=== PATIENT | female | born 2000 | race Caucasian/White ===

== ENCOUNTER 2022-08-24 21:55 | Inpatient (IN) ==
[2022-08-24 22:55] LABS: Pregnancy Test, Urine Negative (Negative)
[2022-08-24 22:55] LABS: Basophils # (auto) 0.04 K/uL (0-0.2); Basophils % (auto) 0.4 %; Eosinophils # (auto) 0.09 K/uL (0-0.50); Eosinophils % (auto) 0.9 %; Hematocrit (blood only) 43.2 % (37.0-47.0); Hemoglobin 14.7 g/dl (12.0-16.0); Immature Granulocytes # (auto) 0.03 K/uL (0.01-0.20); Immature Granulocytes % (auto) 0.3 %; Lymphocytes # (auto) 3.45 K/uL (1.2-3.4); Lymphocytes % (auto) 33.1 %; Mean Corpuscular Hemoglobin 30.5 pg (25.0-34.0); Mean Corpuscular Volume 89.6 fL (80.0-100.0); Mean Platelet Volume 11.5 fL (9.4-12.4); Monocytes # (auto) 0.66 K/uL (0.11-0.59); Monocytes % (auto) 6.3 %; Neutrophils # (auto) 6.14 K/uL (1.40-6.50); Platelet Count 295 K/uL (130-400); RDW Coefficient of Variation 12.6 % (11.5-14.5); RDW Standard Deviation 41.3 fL (36.4-46.3); Red Blood Count 4.82 M/uL (4.20-5.40); White Blood Count 10.41 K/ul (4.8-10.8)
[2022-08-24 22:58] LABS: Appearance Urine Clear (Clear); Bilirubin Urine Negative (Negative); Blood Urine Negative (Negative); Color Urine Yellow; Glucose Urine UA Negative (Negative); Ketones Urine Negative (Negative); Leukocyte Esterase Urine Negative (Negative); Nitrite Urine Negative (Negative); Protein Urine Negative (Negative); Specific Gravity Urine 1.021 (1.000-1.030); Urobilinogen Urine Negative (Negative)
--- NOTE | 2022-08-24 23:04 | Emergency Department Note ---
History of Present Illness General Chief complaint: Overdose (Intentional) Stated complaint: OVERDOSE Time Seen by Provider: 08/24/22 22:48 History of Present Illness 22-year-old female presents emergency department states that she had an argument with her roommate and took 20 25 mg Vistaril at 9:10 PM. Patient states that she has had a prior psychiatric admission 2 years ago but had no suicidal ideation at that time. Patient states that this was to cause self-harm. Patient states that she currently is depressed. Patient denies any other current symptoms such as chest pain shortness of breath abdominal pain nausea vomiting diarrhea. Patient denies any drug use denies aspirin or Tylenol ingestion. Denies alcohol use. There are no other mitigating or alleviating factors Home Medications Medication Instructions Recorded Confirmed Type levonorgestrel 21 mcg/24 hours (8 intrauterine 08/03/20 04/26/22 History yrs) 52 mg intrauterine device (Mirena) lurasidone 20 mg tablet (Latuda) 60 mg PO DAILY 09/27/21 08/25/22 History syringe with needle, safety 3 mL #4 ea 04/24/22 04/26/22 Rx 25 gauge x 1" (BD Integra Syringe) topiramate 50 mg tablet (Topamax) 100 mg PO BID 04/24/22 08/25/22 History buspirone 10 mg tablet mg 08/25/22 History fluoxetine 20 mg tablet mg 08/25/22 History Allergies Allergy/AdvReac Type Severity Reaction Status Date / Time amoxicillin Allergy Unknown Rash Verified 04/26/22 10:00 Past Med/Surg History Medical History Abdominal cramping, bilateral lower quadrant Acute diarrhea Bipolar 2 disorder BRCA gene mutation negative for 1 and 2. plan to start mammo at 29 Influenza A Migraine without aura Surgical History H/O wisdom tooth extraction Family History Mother Breast cancer, Onset Age: 40 BRCA neg Depression Hypertension Seizure Grandmother (Paternal) Ovarian cancer Father Squamous cell carcinoma Alcohol abuse Sister Depression Denies family history of Prostate cancer Myocardial infarction Colorectal cancer Uterine cancer Social History Smoking Status: Unknown if ever smoked Second Hand Exposure: Yes; Do You Dip or Chew Tobacco: No; Hx Alcohol Use: Yes Alcohol type: hard liquor and other Alcohol Intake Frequency: 2-3 x/Week Hx Substance Use: No Preferred Language: Setswana Communication Ability: Effective Communication Ability Comment: Single. [employer] student. Visual Impairment: No Limitations Hearing Ability: Normal Air Quality Chemist Required: No marital status: Single Current Living Situation: Other Current Living Situation Comment: W/[employer]MAT[employer] current occupational status: employed current occupation: ASSIST. [employer] Feels Safe at Home: No Childhood Exposure to Second-Hand Smoke: Yes Diet: regular caffeine: No during the past year weight has: increased > 10 lbs Dental Care, Regularly: Yes Physical Activity Frequency: Does not Exercise Seatbelt Use: always Sunscreen Use: Yes Gender Identity: Female Assistive Devices: Contacts Review of Systems A total of 10 systems reviewed and were otherwise negative Respiratory: no cough Cardiovascular: no chest pain Gastrointestinal: no abdominal pain Physical Exam Vital Signs Vital Signs - 24 hr 08/24/22 22:07 08/24/22 22:31 08/25/22 02:37 Temperature 37.1 C Temperature Source Oral Pulse Rate 81 71 Pulse Rate [Apical] 76 Respiratory Rate 16 16 Respiratory Effort / Characteristics Non-Labored Spontaneous Non-Labored Spontaneous Respiratory Depth Normal Normal Respiratory Pattern Regular Regular Blood Pressure 146/89 H Blood Pressure [Right Arm] 112/77 Blood Pressure Mean 108 Blood Pressure Mean [Right Arm] 88 Pulse Oximetry 100 99 Oxygen Delivery Method Room Air Room Air Sepsis Recent Fever Within 48 Hours No Sepsis New/Unexplained Change in Mental Status No Sepsis Action Taken by Nursing No Action Required 08/25/22 02:48 Temperature Temperature Source Pulse Rate 72 Pulse Rate [Apical] Respiratory Rate Respiratory Effort / Characteristics Respiratory Depth Respiratory Pattern Blood Pressure Blood Pressure [Right Arm] Blood Pressure Mean Blood Pressure Mean [Right Arm] Pulse Oximetry Oxygen Delivery Method Sepsis Recent Fever Within 48 Hours Sepsis New/Unexplained Change in Mental Status Sepsis Action Taken by Nursing GENERAL: Patient is awake alert in no acute distress patient is resting comfortably and showing no signs of anxiety EYES: The conjunctivae are clear. The pupils are round and reactive. EARS, NOSE, MOUTH AND THROAT: The nose is without any evidence of any deformity. Mucous membranes are moist. Tongue is midline. NECK: The neck is nontender and supple. RESPIRATORY: Normal respiratory effort is noted there is no evidence of wheezing rhonchi or rales CARDIOVASCULAR: Regular rate and rhythm noted there no murmurs rubs or gallops normal S1 normal S2. GASTROINTESTINAL: The abdomen is soft. Abdomen is nontender. BACK: No midline tenderness or or step-off noted range of motion in flexion extension as well as rotation no signs of muscle spasm noted MUSCULOSKELETAL/EXTREMITIES: There is no evidence of gross deformity full range of motion is noted in the hips and shoulders. SKIN: There is no obvious evidence of any rash. There are no petechiae, pallor or cyanosis noted. NEUROLOGIC: Patient is awake alert and oriented x3 strength is symmetric Psych; depressed affect Course Reevaluation(s) Reevaluation #1: Repeat examination patient restingin no distress, there is no alteration mental status, the patient not tachycardic not hypertensive there is no obvious anticholinergic toxidrome. Patient is now medically cleared for psychiatric evaluation at 2:05 AM Time: 02:03 Reevaluation #2: Patient was resting in no distress was evaluated by the 3 S. psychiatric team and has been accepted for admission at 3:40 AM Time: 03:40 Medical Decision Making Medical Records Attestation: I reviewed the patient's medical records. Home Medications Current Medication List: was personally reviewed by me Laboratory Data Attestation: I reviewed the patient's lab results. 08/24/22 22:02 08/24/22 22:02 Lab Results 08/24/22 08/24/22 08/24/22 Range/Units 22:02 22:02 22:02 WBC 10.41 (4.8-10.8) K/ul RBC 4.82 (4.20-5.40) M/uL Hgb 14.7 (12.0-16.0) g/dl Hct 43.2 (37.0-47.0) % MCV 89.6 (80.0-100.0) fL MCH 30.5 (25.0-34.0) pg MCHC 34.0 (32.0-36.0) g/dL RDW Std Deviation 41.3 (36.4-46.3) fL RDW Coeff of Enrique 12.6 (11.5-14.5) % Plt Count 295 (130-400) K/uL MPV 11.5 (9.4-12.4) fL Immature Gran % (Auto) 0.3 % Neut % (Auto) 59.0 % Lymph % (Auto) 33.1 % [place] % (Auto) 6.3 % Eos % (Auto) 0.9 % Baso % (Auto) 0.4 % Neut # (Auto) 6.14 (1.40-6.50) K/uL Lymph # (Auto) 3.45 H (1.2-3.4) K/uL [place] # (Auto) 0.66 H (0.11-0.59) K/uL Eos # (Auto) 0.09 (0-0.50) K/uL Baso # (Auto) 0.04 (0-0.2) K/uL Immature Gran # (Auto) 0.03 (0.01-0.20) K/uL Sodium 139 (136-145) mmol/L Potassium 3.4 L (3.5-5.1) mmol/L Chloride 106 (98-107) mmol/L Carbon Dioxide 26 (21-32) mmol/L Anion Gap 7 (3-11) BUN 14 (6-23) mg/dl Creatinine 0.93 (0.6-1.2) mg/dl Est Cr Clr Drug Dosing 105.9 ml/min Est GFR ( Amer) 100.4 ml/min Est GFR (Non-Af Amer) 86.6 ml/min BUN/Creatinine Ratio 15.1 (10-20) Glucose 99 (70-99(Fasting)) mg/dl Calcium 9.1 (8.6-10.3) mg/dl Total Bilirubin 0.2 (0.2-1.0) mg/dl AST 17 (13-39) U/L ALT 10 (7-52) U/L Alkaline Phosphatase 101 (34-104) U/L Total Protein 7.6 (6.0-8.3) gm/dl Albumin 4.3 (3.4-5.0) gm/dl Globulin 3.3 (2.5-4.0) gm/dl Albumin/Globulin Ratio 1.3 (0.9-2) TSH 2.328 (0.300-4.500) uIu/ml Urine Color Urine Appearance (Clear) Urine pH (4.5-7.5) Ur Specific [place] (1.000-1.030) Urine Protein (Negative) Urine Glucose (UA) (Negative) Urine Ketones (Negative) Urine Blood (Negative) Urine Nitrite (Negative) Urine Bilirubin (Negative) Urine Urobilinogen (Negative) Ur Leukocyte Esterase (Negative) Urine Test (Negative) Salicylates (3.0-30) mg/dl Urine Opiates Screen (Neg) Ur Methadone, Qual (Neg) Acetaminophen (10-30) ug/ml Urine Barbiturates (Neg) Ur Phencyclidine (PCP) (Neg) U Amphetamin/Meth Scrn (Neg) MDMA (Ecstasy) Screen (Neg) U Benzodiazepines Scrn (Neg) Ur Cocaine Metabolite (Neg) U Marijuana (THC) Screen (Neg) Ethyl Alcohol mg/dL (<10.0) mg/dl SARS-CoV-2, RNA, NAAT (NEGATIVE) 08/24/22 08/24/22 08/24/22 Range/Units 22:02 22:42 22:42 WBC (4.8-10.8) K/ul RBC (4.20-5.40) M/uL Hgb (12.0-16.0) g/dl Hct (37.0-47.0) % MCV (80.0-100.0) fL MCH (25.0-34.0) pg MCHC (32.0-36.0) g/dL RDW Std Deviation (36.4-46.3) fL RDW Coeff of Enrique (11.5-14.5) % Plt Count (130-400) K/uL MPV (9.4-12.4) fL Immature Gran % (Auto) % Neut % (Auto) % Lymph % (Auto) % [place] % (Auto) % Eos % (Auto) % Baso % (Auto) % Neut # (Auto) (1.40-6.50) K/uL Lymph # (Auto) (1.2-3.4) K/uL [place] # (Auto) (0.11-0.59) K/uL Eos # (Auto) (0-0.50) K/uL Baso # (Auto) (0-0.2) K/uL Immature Gran # (Auto) (0.01-0.20) K/uL Sodium (136-145) mmol/L Potassium (3.5-5.1) mmol/L Chloride (98-107) mmol/L Carbon Dioxide (21-32) mmol/L Anion Gap (3-11) BUN (6-23) mg/dl Creatinine (0.6-1.2) mg/dl Est Cr Clr Drug Dosing ml/min Est GFR ( Amer) ml/min Est GFR (Non-Af Amer) ml/min BUN/Creatinine Ratio (10-20) Glucose (70-99(Fasting)) mg/dl Calcium (8.6-10.3) mg/dl Total Bilirubin (0.2-1.0) mg/dl AST (13-39) U/L ALT (7-52) U/L Alkaline Phosphatase (34-104) U/L Total Protein (6.0-8.3) gm/dl Albumin (3.4-5.0) gm/dl Globulin (2.5-4.0) gm/dl Albumin/Globulin Ratio (0.9-2) TSH (0.300-4.500) uIu/ml Urine Color Urine Appearance (Clear) Urine pH (4.5-7.5) Ur Specific [place] (1.000-1.030) Urine Protein (Negative) Urine Glucose (UA) (Negative) Urine Ketones (Negative) Urine Blood (Negative) Urine Nitrite (Negative) Urine Bilirubin (Negative) Urine Urobilinogen (Negative) Ur Leukocyte Esterase (Negative) Urine Test (Negative) Salicylates < 3.0 L (3.0-30) mg/dl Urine Opiates Screen Neg (Neg) Ur Methadone, Qual Neg (Neg) Acetaminophen < 3 L (10-30) ug/ml Urine Barbiturates Neg (Neg) Ur Phencyclidine (PCP) Neg (Neg) U Amphetamin/Meth Scrn Neg (Neg) MDMA (Ecstasy) Screen Neg (Neg) U Benzodiazepines Scrn Neg (Neg) Ur Cocaine Metabolite Neg (Neg) U Marijuana (THC) Screen Pos H (Neg) Ethyl Alcohol mg/dL (<10.0) mg/dl SARS-CoV-2, RNA, NAAT NEGATIVE (NEGATIVE) 08/24/22 08/24/22 08/24/22 Range/Units 22:42 22:42 22:48 WBC (4.8-10.8) K/ul RBC (4.20-5.40) M/uL Hgb (12.0-16.0) g/dl Hct (37.0-47.0) % MCV (80.0-100.0) fL MCH (25.0-34.0) pg MCHC (32.0-36.0) g/dL RDW Std Deviation (36.4-46.3) fL RDW Coeff of Enrique (11.5-14.5) % Plt Count (130-400) K/uL MPV (9.4-12.4) fL Immature Gran % (Auto) % Neut % (Auto) % Lymph % (Auto) % [place] % (Auto) % Eos % (Auto) % Baso % (Auto) % Neut # (Auto) (1.40-6.50) K/uL Lymph # (Auto) (1.2-3.4) K/uL [place] # (Auto) (0.11-0.59) K/uL Eos # (Auto) (0-0.50) K/uL Baso # (Auto) (0-0.2) K/uL Immature Gran # (Auto) (0.01-0.20) K/uL Sodium (136-145) mmol/L Potassium (3.5-5.1) mmol/L Chloride (98-107) mmol/L Carbon Dioxide (21-32) mmol/L Anion Gap (3-11) BUN (6-23) mg/dl Creatinine (0.6-1.2) mg/dl Est Cr Clr Drug Dosing ml/min Est GFR ( Amer) ml/min Est GFR (Non-Af Amer) ml/min BUN/Creatinine Ratio (10-20) Glucose (70-99(Fasting)) mg/dl Calcium (8.6-10.3) mg/dl Total Bilirubin (0.2-1.0) mg/dl AST (13-39) U/L ALT (7-52) U/L Alkaline Phosphatase (34-104) U/L Total Protein (6.0-8.3) gm/dl Albumin (3.4-5.0) gm/dl Globulin (2.5-4.0) gm/dl Albumin/Globulin Ratio (0.9-2) TSH (0.300-4.500) uIu/ml Urine Color Yellow Urine Appearance Clear (Clear) Urine pH 6.0 (4.5-7.5) Ur Specific [place] 1.021 (1.000-1.030) Urine Protein Negative (Negative) Urine Glucose (UA) Negative (Negative) Urine Ketones Negative (Negative) Urine Blood Negative (Negative) Urine Nitrite Negative (Negative) Urine Bilirubin Negative (Negative) Urine Urobilinogen Negative (Negative) Ur Leukocyte Esterase Negative (Negative) Urine Test Negative (Negative) Salicylates (3.0-30) mg/dl Urine Opiates Screen (Neg) Ur Methadone, Qual (Neg) Acetaminophen (10-30) ug/ml Urine Barbiturates (Neg) Ur Phencyclidine (PCP) (Neg) U Amphetamin/Meth Scrn (Neg) MDMA (Ecstasy) Screen (Neg) U Benzodiazepines Scrn (Neg) Ur Cocaine Metabolite (Neg) U Marijuana (THC) Screen (Neg) Ethyl Alcohol mg/dL < 10.0 (<10.0) mg/dl SARS-CoV-2, RNA, NAAT (NEGATIVE) ECG Data Attestation: I personally reviewed and interpreted this ECG as follows: Additional Comments: EKG interpreted by me normal sinus rhythm rate of [address]-T change normal QTc there is no terminal R wave in aVR. Normal axis otherwise normal intervals. No obvious ST segment elevation or depression Telemetry was ordered by me, interpreted as sinus rhythm rate of 64 MDM Narrative Medical decision making differential diagnosis includes intentional overdose, antihistamine toxicity, depression, suicidal ideation, electrolyte abnormality Plan is to check labs, EKG, observe, case management for psychiatric disposition The triage nurse reportedly has already spoken to poison control. Patient will be observed for 4 hours. Impression & Plan Intentional overdose, Depression with suicidal ideation Discharge Plan Visit Data Chief Complaint: Overdose (Intentional) Stated Complaint: OVERDOSE ED Provider: Joe Jarrett Discharge Problem: Intentional overdose, Depression with suicidal ideation Patient Disposition: Admitted As Inpatient Forms Stand Alone Forms: My [facility], Suicide Prevention Resources Prescriptions Prescriptions: No Action Latuda 20 mg tablet 60 mg PO DAILY Rx Instructions: must administer with food (at least 350 calories) (DME) BD Integra Syringe 3 mL 25 gauge x 1" syringe See Rx Instructions .ROUTE .MEDSUPPLY Qty: 4 3RF Rx Instructions: As directed with b12 Mirena 20 mcg/24 hours (6 yrs) 52 mg intrauterine device intrauterine topiramate [Topamax] 50 mg tablet 100 mg PO BID buspirone 10 mg tablet fluoxetine 20 mg tablet Referrals Referrals: Rangel Meek DO [Primary Care Provider] -
[2022-08-24 23:09] LABS: Acetaminophen < 3 ug/ml (10-30); Salicylate < 3.0 mg/dl (3.0-30)
[2022-08-24 23:10] LABS: Albumin Globulin Ratio 1.3 (0.9-2); Albumin Level 4.3 gm/dl (3.4-5.0); BUN Creatinine Ratio 15.1 (10-20); Bilirubin,Total 0.2 mg/dl (0.2-1.0); Calcium 9.1 mg/dl (8.6-10.3); Creatinine Clr Calc Pharmacy 105.9 ml/min; Est GFR (African American) 100.4 ml/min; Est GFR (Non-African American) 86.6 ml/min; Globulin 3.3 gm/dl (2.5-4.0); Potassium 3.4 mmol/L (3.5-5.1); Total Protein 7.6 gm/dl (6.0-8.3)
[2022-08-24 23:29] LABS: Amphetamines+Metham, Urine Neg (Neg); Barbiturates, Urine Neg (Neg); Benzodiazepine, Urine Neg (Neg); Cocaine, Urine Neg (Neg); MDMA (Ecstacy), Urine Neg (Neg); Methadone, Urine Neg (Neg); Opiate, Urine Neg (Neg); Phencyclidine, Urine Neg (Neg)
[2022-08-25] MEDS ORDERED: SODIUM CHLORIDE 0.65% NA SOLN 45 ML (OCEAN) PRN (03:16)
[2022-08-25] MEDS ORDERED: MAGNESIUM HYDROXIDE SUSP 30 ML UDC PO PRN (03:16)
[2022-08-25] MEDS ORDERED: ALUMINUM/MAGNESIUM SUSP 30 ML UDC PO PRN (03:16)
[2022-08-25] MEDS ORDERED: BISMUTH SUBSALICYLATE LIQD 236 ML PO PRN (03:16)
[2022-08-25] MEDS ORDERED: ACETAMINOPHEN 325 MG TAB PO PRN (03:16)
--- NOTE | 2022-08-25 12:28 | History & Physical ---
Date of Service August 25, 2022 Impression / Recommendations Impression Kathi is a 22 year old woman with a history of GIL and BPAD type II who was admitted for suicide attempt via overdose of hydroxyzine. Diagnostically consistent with current depressive episode of BPAD type II and GIL. She is deemed in need of psychiatric hospitalization for diagnostic clarification, safety and stabilization, medication management and development of further coping skills. Discussed medication treatment options in detail. Discussed risks, benefits and alternatives. Patient would like to start and consented to increasing fluoxetine for depression and GIL as well as continuing Latuda for mood stabilization.Reviewed side effects including but not limited to: GI, OSMAN, sexual side effects, and counseled on black box warning of potential for emergence of or increased SI and need to let staff know should this occur or should they feel unsafe. Also discussed importance of seeking emergency care following discharge if this side effect occurs in the future with fluoxetine. Reviewed side effects for Latuda including but not limited to: movement (TD, NMS), cardiac (QTc prolongation), and metabolic (stroke, insulin resistance) and necessity for fasting lipid and glucose labwork and AIMS done with score of 0. (1) Bipolar 2 disorder, major depressive episode: (2) GIL (generalized anxiety disorder): (3) Intentional overdose: Plan 08/25/2022: The patient was admitted to the [facility] ([facility] unit) on q15 min checks (behavioral with suicide precautions) for safety. The patient will participate in group, recreational, and milieu therapies and will be offered additional individual and family sessions as clinically appropriate. -fasting glucose, HbA1c, fasting lipid panel tomorrow AM -Restart Latuda 40mg daily (reduce to 40mg as hospital formulary doesn't have 60mg) -hold Buspar and Vistaril prn given overdose -Increase fluoxetine to 40mg daily starting tomorrow -Continue prior to admission Topamax 100mg BID for migraines -Consideration for augmentation with mirtazapine if sleep issues and low appetite persist Inventory Assets Strengths: supportive relationships, willing to get treatment Needs: safety and stabilization, medication adjustment, additional coping skills, increased outpatient services Suicide Risk Level Suicide Risk Level: High-Moderate (q15 min suicide checks) (severe depression with suicide attempt prior to admission but feels safe in the hospital, able to safety contract and agrees to let nursing/staff know should they develop plan, intent or feel unable to remain safe.) Suicide Risk Level Comments: Risk Factors Assessment Male: No : Yes Do You Have Access To A Gun?: No Health Problems: No Mental Health Diagnoses: Yes Substance Use Disorders: No Previous Attempt: Yes (leading to admission) Family History of Suicide: No Previous Psychiatric Hospitalization: Yes Hopelessness: Yes Protective Factors Assessment 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 Chief Complaint "I just wanted to sleep". History of Present Illness Kathi was brought to the hospital after impulsively overdosing on hydroxyzine, 20 tabs of 25mg strength tablets, in the context of an argument with her roommate. She had texted her boyfriend a suicide note via text and he encouraged her to call EMS which she then did. She feels like she did not want to but also wasn't "really sure what would happen" and felt like she wanted to sleep and thought "if I don't wake up then that's what happens but if I did wake up I'd deal with the consequences later". She endorses increased depressive and anxiety symptoms recently related to loneliness/social isolation, financial stress and conflict with roommates. Depressive symptoms including low motivation, hopelessness, decreased appetite, difficulty sleeping (sleep onset insomnia and multiple awakenings). Anxiety symptoms of not wanting to go anywhere, isolation, heart racing, denies any panic attacks. She's been experiencing intermittent SI but "they were in the back of mind, not like I wanted to kill myself" but feels it acutely worsened after her roommate was making very derogatory statements about her. "The words he was saying made me feel like I was worthless and shouldn't be here and that no one likes me". She is currently prescribed psychiatric medications: buspar 20mg BID, fluoxetine 20mg daily (about 2 or 3 months, seems to help, no side effects), Latuda 60mg with dinner (has been on this for the past month with good effect), Topamax 100mg BID (for headaches and mood stabilization, no side effects). Psychiatric ROS notable for no current nor history of symptoms of robyn but history of hypomania, psychosis, OCD, self-harm nor eating disorder. History of trauma no current symptoms of PTSD. Past Psychiatric History Current Psychiatric Diagnosis: Unspecified depressive d/o Outpatient Services: [place] for psychiatry with [facility], hx therapy at [facility] but not since February Previous Psych Admissions: [facility] in June 2020 for depression and SI Do You Have Access To A Gun?: No History of Previous Suicide Attempt: No Past Medication Trials: Vraylar (bad reaction), Abilify (didn't work well, caused headaches) Past Head Trauma/Neuro History History of Concussion/Seizure: Yes seizure as a child but none since then Allergies Allergy/AdvReac Type Severity Reaction Status Date / Time amoxicillin Allergy Unknown Rash Verified 08/25/22 12:32 Home Medications Medication Instructions Recorded Confirmed Type levonorgestrel 21 mcg/24 hours (8 intrauterine 08/03/20 04/26/22 History yrs) 52 mg intrauterine device (Mirena) lurasidone 20 mg tablet (Latuda) 60 mg PO DAILY 09/27/21 08/25/22 History syringe with needle, safety 3 mL #4 ea 04/24/22 04/26/22 Rx 25 gauge x 1" (BD Integra Syringe) topiramate 50 mg tablet (Topamax) 100 mg PO BID 04/24/22 08/25/22 History buspirone 10 mg tablet mg 08/25/22 History fluoxetine 20 mg tablet mg 08/25/22 History Family History Family History of: Depression (sister, mom), Alcoholism/Drug Abuse (father) and Bipolar (BPAD type II in her father) Alcohol History Hx of Alcohol Use Over the Past 12 Months: No AUDIT Total Score: 1 drinks alcohol once per month Smoking Use Have You Smoked or Used Tobacco Products in the Last 30 Days: No Smoking Status: Never smoker Substance History Hx of Prescription Med Misuse Over the Past 12 Months: No Hx of Over the Counter Med Misuse Over the Past 12 Months: No Hx of Inhalent Misuse Over the Past 12 Months: No Hx of Organic Substance Use Over the Past 12 Months: Yes (medical marijuana) Hx of Illegal Substances/Street Drug Use Over Past 12 Months: No Problems as a Result of Past Substance Use: None Identified uses medical marijuana but had been taking a break over the last week as she felt she was becoming dependent on it; previously was using daily in the evenings liked that it helped with sleep, appetite and "mellowing me out". Personal History Living Arrangements: Home Childhood: parents are alive. Has a younger sister. Highest Grade Completed: Some College (wants to return once financially feasible) Employment Status: [employer] Employed ( ) Marital Status: Single (with boyfriend for the last year) Number Of Children: 0 Beliefs That Will Affect Care: None Current Legal Problems: No Hx Legal Problems: No Hx Traumatic Life Events: Yes Patient History Medical History Abdominal cramping, bilateral lower quadrant Acute diarrhea Bipolar 2 disorder BRCA gene mutation negative for 1 and 2. plan to start mammo at 29 Influenza A Migraine without aura Surgical History H/O wisdom tooth extraction Family History Mother Breast cancer, Onset Age: 40 BRCA neg Depression Hypertension Seizure Grandmother (Paternal) Ovarian cancer Father Squamous cell carcinoma Alcohol abuse Sister Depression Denies family history of Prostate cancer Myocardial infarction Colorectal cancer Uterine cancer Social History Smoking Status: Never smoker Second Hand Exposure: Yes; Do You Dip or Chew Tobacco: No; Hx Alcohol Use: Yes Alcohol type: hard liquor and other Alcohol Intake Frequency: 2-3 x/Week Hx Substance Use: No Preferred Language: Gambian Communication Ability: Effective Visual Impairment: No Limitations Hearing Ability: Normal Industrial Plant Custodian Required: No Beliefs That Will Affect Care: None marital status: Single Current Living Situation: Other Current Living Situation Comment: W/ROOMMATES current occupational status: employed 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 Feels Safe at Home: Yes Childhood Exposure to Second-Hand Smoke: Yes Diet: regular caffeine: No during the past year weight has: increased > 10 lbs Dental Care, Regularly: Yes Physical Activity Frequency: Does not Exercise Seatbelt Use: always Sunscreen Use: Yes Gender Identity: Female Assistive Devices: Glasses Review of Systems Review of Systems: All systems reviewed & are unremarkable except as noted in HPI & below Physical Exam Psychiatric: Orientation: alert and oriented x 3 Apperance: appropriately dressed and appropriately groomed Eye Contact: good eye contact Motor Behavior: no abnormal motor movements Speech: normal rate/rhythm/volume of speech Affect: + depressed affect and + anxious affect Mood: + depressed mood and + anxious mood Thought Process: goal directed thought process Thought Content: reality based without delusions Suicidal Thoughts: denies suicidal thoughts (none but s/p overdose), denies suicidal plan and denies suicidal intent Homicidal Thoughts: denies homicidal thoughts Hallucinations: no auditory hallucinations and no visual hallucinations Cognition: recent memory grossly intact, remote memory grossly intact, attention grossly intact and language grossly intact Estimated Intelligence: consistent with education level Insight: + fair insight Judgment: + limited judgement Vital Signs (Past 24 Hours): Last Vital Signs Temp 36.2 C L 08/25/22 06:00 Pulse 55 L 08/25/22 06:00 Resp 18 08/25/22 06:00 BP 102/64 08/25/22 06:00 Pulse Ox 99 08/25/22 06:00 O2 Del Method Room Air 08/25/22 06:00 Exam Statement: A physical exam was performed in the ED by Dr. Jarrett for the purposes of medical clearance. I accept that physical as correct and adequate for the purpo ses of the inpatient physical exam. Results & Data ([facility]) Laboratory Results Laboratory Results - last 24 hr 08/24/22 08/24/22 08/24/22 22:02 22:02 22:02 WBC 10.41 RBC 4.82 Hgb 14.7 Hct 43.2 MCV 89.6 MCH 30.5 MCHC 34.0 RDW Std Deviation 41.3 RDW Coeff of Enrique 12.6 Plt Count 295 MPV 11.5 Immature Gran % (Auto) 0.3 Neut % (Auto) 59.0 Lymph % (Auto) 33.1 Citrus % (Auto) 6.3 Eos % (Auto) 0.9 Baso % (Auto) 0.4 Neut # (Auto) 6.14 Lymph # (Auto) 3.45 H [place] # (Auto) 0.66 H Eos # (Auto) 0.09 Baso # (Auto) 0.04 Immature Gran # (Auto) 0.03 Sodium 139 Potassium 3.4 L Chloride 106 Carbon Dioxide 26 Anion Gap 7 BUN 14 Creatinine 0.93 Est Cr Clr Drug Dosing 105.9 Est GFR ( Amer) 100.4 Est GFR (Non-Af Amer) 86.6 BUN/Creatinine Ratio 15.1 Glucose 99 Calcium 9.1 Total Bilirubin 0.2 AST 17 ALT 10 Alkaline Phosphatase 101 Total Protein 7.6 Albumin 4.3 Globulin 3.3 Albumin/Globulin Ratio 1.3 TSH 2.328 Urine Color Urine Appearance Urine pH Ur Specific [place] Urine Protein Urine Glucose (UA) Urine Ketones Urine Blood Urine Nitrite Urine Bilirubin Urine Urobilinogen Ur Leukocyte Esterase Urine Test Salicylates Urine Opiates Screen Ur Methadone, Qual Acetaminophen Urine Barbiturates Ur Phencyclidine (PCP) U Amphetamin/Meth Scrn MDMA (Ecstasy) Screen U Benzodiazepines Scrn Ur Cocaine Metabolite U Marijuana (THC) Screen U Marijuana THC Carboxy Drug Screen Comment Ethyl Alcohol mg/dL SARS-CoV-2, RNA, NAAT 08/24/22 08/24/22 08/24/22 22:02 22:42 22:42 WBC RBC Hgb Hct MCV MCH MCHC RDW Std Deviation RDW Coeff of Enrique Plt Count MPV Immature Gran % (Auto) Neut % (Auto) Lymph % (Auto) [place] % (Auto) Eos % (Auto) Baso % (Auto) Neut # (Auto) Lymph # (Auto) [place] # (Auto) Eos # (Auto) Baso # (Auto) Immature Gran # (Auto) Sodium Potassium Chloride Carbon Dioxide Anion Gap BUN Creatinine Est Cr Clr Drug Dosing Est GFR ( Amer) Est GFR (Non-Af Amer) BUN/Creatinine Ratio Glucose Calcium Total Bilirubin AST ALT Alkaline Phosphatase Total Protein Albumin Globulin Albumin/Globulin Ratio TSH Urine Color Urine Appearance Urine pH Ur Specific [place] Urine Protein Urine Glucose (UA) Urine Ketones Urine Blood Urine Nitrite Urine Bilirubin Urine Urobilinogen Ur Leukocyte Esterase Urine Test Salicylates < 3.0 L Urine Opiates Screen Neg Ur Methadone, Qual Neg Acetaminophen < 3 L Urine Barbiturates Neg Ur Phencyclidine (PCP) Neg U Amphetamin/Meth Scrn Neg MDMA (Ecstasy) Screen Neg U Benzodiazepines Scrn Neg Ur Cocaine Metabolite Neg U Marijuana (THC) Screen Pos H U Marijuana THC Carboxy Drug Screen Comment Ethyl Alcohol mg/dL SARS-CoV-2, RNA, NAAT NEGATIVE 08/24/22 08/24/2223 22:42 22:42 22:42 WBC RBC Hgb Hct MCV MCH MCHC RDW Std Deviation RDW Coeff of Enrique Plt Count MPV Immature Gran % (Auto) Neut % (Auto) Lymph % (Auto) [place] % (Auto) Eos % (Auto) Baso % (Auto) Neut # (Auto) Lymph # (Auto) [place] # (Auto) Eos # (Auto) Baso # (Auto) Immature Gran # (Auto) Sodium Potassium Chloride Carbon Dioxide Anion Gap BUN Creatinine Est Cr Clr Drug Dosing Est GFR ( Amer) Est GFR (Non-Af Amer) BUN/Creatinine Ratio Glucose Calcium Total Bilirubin AST ALT Alkaline Phosphatase Total Protein Albumin Globulin Albumin/Globulin Ratio TSH Urine Color Yellow Urine Appearance Clear Urine pH 6.0 Ur Specific [place] 1.021 Urine Protein Negative Urine Glucose (UA) Negative Urine Ketones Negative Urine Blood Negative Urine Nitrite Negative Urine Bilirubin Negative Urine Urobilinogen Negative Ur Leukocyte Esterase Negative Urine Test Negative Salicylates Urine Opiates Screen Ur Methadone, Qual Acetaminophen Urine Barbiturates Ur Phencyclidine (PCP) U Amphetamin/Meth Scrn MDMA (Ecstasy) Screen U Benzodiazepines Scrn Ur Cocaine Metabolite U Marijuana (THC) Screen U Marijuana THC Carboxy Pending Drug Screen Comment Pending Ethyl Alcohol mg/dL SARS-CoV-2, RNA, NAAT 08/24/22 22:48 WBC RBC Hgb Hct MCV MCH MCHC RDW Std Deviation RDW Coeff of Enrique Plt Count MPV Immature Gran % (Auto) Neut % (Auto) Lymph % (Auto) [place] % (Auto) Eos % (Auto) Baso % (Auto) Neut # (Auto) Lymph # (Auto) [place] # (Auto) Eos # (Auto) Baso # (Auto) Immature Gran # (Auto) Sodium Potassium Chloride Carbon Dioxide Anion Gap BUN Creatinine Est Cr Clr Drug Dosing Est GFR ( Amer) Est GFR (Non-Af Amer) BUN/Creatinine Ratio Glucose Calcium Total Bilirubin AST ALT Alkaline Phosphatase Total Protein Albumin Globulin Albumin/Globulin Ratio TSH Urine Color Urine Appearance Urine pH Ur Specific [place] Urine Protein Urine Glucose (UA) Urine Ketones Urine Blood Urine Nitrite Urine Bilirubin Urine Urobilinogen Ur Leukocyte Esterase Urine Test Salicylates Urine Opiates Screen Ur Methadone, Qual Acetaminophen Urine Barbiturates Ur Phencyclidine (PCP) U Amphetamin/Meth Scrn MDMA (Ecstasy) Screen U Benzodiazepines Scrn Ur Cocaine Metabolite U Marijuana (THC) Screen U Marijuana THC Carboxy Drug Screen Comment Ethyl Alcohol mg/dL < 10.0 SARS-CoV-2, RNA, NAAT Current Inpatient Medications Current Inpatient Medications: Current Inpatient Medications Acetaminophen (Acetaminophen 325 Mg Tab) 650 mg PO Q4H PRN PRN Reason: Headache or Minor Fever Stop: 09/24/22 03:15 Al Hydrox/Mg Hydrox/Simethicone (Aluminum/Magnesium Susp 30 Ml Udc) 30 ml PO Q4H PRN PRN Reason: GI Upset Stop: 09/24/22 03:15 Bismuth Subsalicylate (Bismuth Subsalicylate Liqd 236 Ml) 15 ml PO PRN PRN PRN Reason: Loose Stool Stop: 09/24/22 03:15 Magnesium Hydroxide (Magnesium Hydroxide Susp 30 Ml Udc) 30 ml PO DAILY PRN PRN Reason: Constipation Stop: 09/24/22 03:15 Sodium Chloride (Sodium Chloride 0.65% Na Soln 45 Ml ([place])) 1 - 2 sprays NA PRN PRN PRN Reason: Nasal Dryness/Congestion Stop: 09/24/22 03:15
[2022-08-25] MEDS ORDERED: NON-FORMULARY MEDICATION (Lurasidone [Latuda] 20 mg tablet) PO SCH (17:15)
[2022-08-25] MEDS: LURASIDONE HCL 40 MG TAB PO SCH (17:26)
[2022-08-25] MEDS: TOPIRAMATE 100 MG TAB PO SCH (20:56)
[2022-08-26 07:34] LABS: Chol HDL Ratio 4.1 (0-5)
--- NOTE | 2022-08-26 08:53 | Psychiatric Progress Note ---
Date of Service August 26, 2022 Impression / Recommendations Impression Steve is a 22 year old woman with a history of GIL and BPAD type II who was admitted for suicide attempt via overdose of hydroxyzine. Diagnostically consistent with current depressive episode of BPAD type II and GIL. She is deemed in need of psychiatric hospitalization for diagnostic clarification, safety and stabilization, medication management and development of further coping skills. 08/26/2022: Ongoing depression but mood starting to improve slightly, participating in treatment. Lipid panel was normal with exception of slightly elevated LDL and low HDL, reviewed this, she would like to remain on Latuda. Glucose/HbA1c results pending. Tolerating initial higher dose of fluoxetine so far today. Wants to restart her prior to admission Buspar, reviewed risks/benefits/side effects/alternatives. (1) Bipolar 2 disorder, major depressive episode: (2) GIL (generalized anxiety disorder): (3) Intentional overdose: Plan 08/26/2022: * Increased fluoxetine 40mg qd * Latuda 40mg BD * Topamax 100mg BID * Restart prior to admission Buspar 20mg BID 08/25/2022: The patient was admitted to the [facility] ([facility]) on q15 min checks (behavioral with suicide precautions) for safety. The patient will participate in group, recreational, and milieu therapies and will be offered additional individual and family sessions as clinically appropriate. -fasting glucose, HbA1c, fasting lipid panel tomorrow AM -Restart Latuda 40mg daily (reduce to 40mg as hospital formulary doesn't have 60mg) -hold Buspar and Vistaril prn given overdose -Increase fluoxetine to 40mg daily starting tomorrow -Continue prior to admission Topamax 100mg BID for migraines -Consideration for augmentation with mirtazapine if sleep issues and low appetite persist Inventory Assets Strengths: supportive relationships, willing to get treatment Needs: safety and stabilization, medication adjustment, additional coping skills, increased outpatient services Suicide Risk Level Suicide Risk Level: High-Moderate (q15 min suicide checks) (severe depression with suicide attempt prior to admission but feels safe in the hospital, able to safety contract and agrees to let nursing/staff know should they develop plan, intent or feel unable to remain safe.) Suicide Risk Level Comments: Risk Factors Assessment Male: No : Yes Do You Have Access To A Gun?: No Health Problems: No Mental Health Diagnoses: Yes Substance Use Disorders: No Previous Attempt: Yes (leading to admission) Family History of Suicide: No Previous Psychiatric Hospitalization: Yes Hopelessness: Yes Protective Factors 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 Chief Complaint "I slept well". Review of Systems Sleep Information Total Hours of Sleep: 7 Sleep Comments: Meal Information Percent Meal Consumed - Breakfast: 0 Percent Meal Consumed - Lunch: 60 Percent Meal Consumed - Dinner: 60 Nutrition Comment: Subjective Subjective Patient was seen & assessed and interval progress reviewed with treatment team nursing and social work. Participating in groups, interacting with peers. Mood is improving. No side effects so far to higher dose of fluoxetine this morning. Slept well last night and appetite is improving. No side effects/symptoms from hydroxyzine overdose, would like to restart prior to admission Buspar. Physical Exam Psychiatric Orientation: alert and oriented x 3 Apperance: appropriately dressed and appropriately groomed Eye Contact: good eye contact Motor Behavior: no abnormal motor movements Speech: normal rate/rhythm/volume of speech Affect: + depressed affect and + anxious affect Mood: + depressed mood and + anxious mood Thought Process: goal directed thought process Thought Content: reality based without delusions Suicidal Thoughts: denies suicidal thoughts (none but s/p overdose), denies suicidal plan and denies suicidal intent Homicidal Thoughts: denies homicidal thoughts Hallucinations: no auditory hallucinations and no visual hallucinations Cognition: recent memory grossly intact, remote memory grossly intact, attention grossly intact and language grossly intact Estimated Intelligence: consistent with education level Insight: + fair insight Judgment: + limited judgement Vital Signs (Past 24 Hours) Last Vital Signs Temp 36.5 C 08/26/22 06:00 Pulse 62 08/26/22 06:00 Resp 18 08/26/22 06:00 BP 101/62 08/26/22 06:54 Pulse Ox 98 08/26/22 06:00 O2 Del Method Room Air 08/26/22 06:00 Results & Data ([facility]) Laboratory Results Laboratory Results - last 24 hr 05/14/23 05/14/23 06:56 06:56 Estimat Average Glucose Pending Hemoglobin A1c Pending Triglycerides 124 Cholesterol 119 LDL Cholesterol, Calc 65 VLDL Cholesterol, Calc 25 HDL Cholesterol 29 Cholesterol/HDL Ratio 4.1 Current Inpatient Medications Current Inpatient Medications: Current Inpatient Medications Acetaminophen (Acetaminophen 325 Mg Tab) 650 mg PO Q4H PRN PRN Reason: Headache or Minor Fever Stop: 09/24/22 03:15 Al Hydrox/Mg Hydrox/Simethicone (Aluminum/Magnesium Susp 30 Ml Udc) 30 ml PO Q4H PRN PRN Reason: GI Upset Stop: 09/24/22 03:15 Bismuth Subsalicylate (Bismuth Subsalicylate Liqd 236 Ml) 15 ml PO PRN PRN PRN Reason: Loose Stool Stop: 09/24/22 03:15 Fluoxetine HCl (Fluoxetine Hcl 20 Mg Cap) 40 mg PO QAM EVARISTO Stop: 09/25/22 08:59 Lurasidone HCl (Lurasidone Hcl 40 Mg Tab) 40 mg PO DAILYBD EVARISTO Stop: 09/24/22 17:14 Last Admin: 08/25/22 17:26 Dose: 40 mg Magnesium Hydroxide (Magnesium Hydroxide Susp 30 Ml Udc) 30 ml PO DAILY PRN PRN Reason: Constipation Stop: 09/24/22 03:15 Sodium Chloride (Sodium Chloride 0.65% Na Soln 45 Ml ([place])) 1 - 2 sprays NA PRN PRN PRN Reason: Nasal Dryness/Congestion Stop: 09/24/22 03:15 Topiramate (Topiramate 100 Mg Tab) 100 mg PO BID EVARISTO Stop: 09/24/22 20:59 Last Admin: 08/25/22 20:56 Dose: 100 mg Mental Health & Subst Abuse Tx Therapist Name of Therapist: none Director Of Teenage Activities Name of Director Of Teenage Activities: none
[2022-08-26] MEDS: TOPIRAMATE 100 MG TAB PO SCH ×2 (08:55→20:37)
[2022-08-26] MEDS: FLUoxetine HCL 20 MG CAP PO SCH (08:55)
[2022-08-26] MEDS: busPIRone 5 MG TAB PO SCH ×2 (11:14→20:37)
[2022-08-26] MEDS: LURASIDONE HCL 40 MG TAB PO SCH (17:33)
--- NOTE | 2022-08-26 20:22 | Electrocardiogram Report ---
Test Reason : Blood Pressure : / mmHG Vent. Rate : 066 BPM Atrial Rate : 066 BPM P-R Int : 114 ms QRS Dur : 090 ms QT Int : 408 ms P-R-T Axes : 022 030 016 degrees QTc Int : 427 ms Normal sinus rhythm with sinus arrhythmia Nonspecific ST abnormality Abnormal ECG When compared with ECG of 09-JUL-2022 18:20, No significant change was found Confirmed by Jamal Tran ([id number]) on 08/26/2022 8:22:23 PM Referred By: REFERRED SELF Confirmed By:Jamal Tran
[2022-08-27 03:42] LABS: Marijuana Quant, GCMS Urine 189 ng/mL (<5)
[2022-08-27 08:14] LABS: Estimated Average Glucose 105 mg/dl; Hemoglobin A1C 5.3 % (4.5-5.6)
[2022-08-27] MEDS: TOPIRAMATE 100 MG TAB PO SCH ×2 (08:45→20:46)
[2022-08-27] MEDS: FLUoxetine HCL 20 MG CAP PO SCH (08:45)
[2022-08-27] MEDS: busPIRone 5 MG TAB PO SCH ×2 (08:45→20:46)
--- NOTE | 2022-08-27 11:07 | Psychiatric Progress Note ---
Date of Service August 27, 2022 Impression / Recommendations Impression Kathi is a 22 year old woman with a history of GIL and BPAD type II who was admitted for suicide attempt via overdose of hydroxyzine. Diagnostically consistent with current depressive episode of BPAD type II and GIL. She is deemed in need of psychiatric hospitalization for diagnostic clarification, safety and stabilization, medication management and development of further coping skills. 08/27/2022: Mood starting to improve, tolerating all her medications. Reviewed HbA1c was normal and stable for continuing with Latuda. Previously she received Latuda sample packs so reviewed sharma with pharmacy who stated co-pay will be $0. Ongoing disposition planning given she cannot return to seeing her previous psychiatric provider. (1) Bipolar 2 disorder, major depressive episode: (2) GIL (generalized anxiety disorder): (3) Intentional overdose: Plan 08/27/2022: Continue current medications and tx plan. 08/26/2022: * Increased fluoxetine 40mg qd * Latuda 40mg BD * Topamax 100mg BID * Restart prior to admission Buspar 20mg BID 08/25/2022: The patient was admitted to the [facility] ([facility]) on q15 min checks (behavioral with suicide precautions) for safety. The patient will participate in group, recreational, and milieu therapies and will be offered additional individual and family sessions as clinically appropriate. -fasting glucose, HbA1c, fasting lipid panel tomorrow AM -Restart Latuda 40mg daily (reduce to 40mg as hospital formulary doesn't have 60mg) -hold Buspar and Vistaril prn given overdose -Increase fluoxetine to 40mg daily starting tomorrow -Continue prior to admission Topamax 100mg BID for migraines -Consideration for augmentation with mirtazapine if sleep issues and low appetite persist Inventory Assets Strengths: supportive relationships, willing to get treatment Needs: safety and stabilization, medication adjustment, additional coping skills, increased outpatient services Suicide Risk Level Suicide Risk Level: Moderate (q15 min suicide checks) (severe depression with suicide attempt prior to admission but mood improving, denies SI, feels safe in the hospital, able to safety contract and agrees to let nursing/staff know should they develop plan, intent or feel unable to remain safe.) Suicide Risk Level Comments: Risk Factors Assessment Male: No : Yes Do You Have Access To A Gun?: No Health Problems: No Mental Health Diagnoses: Yes Substance Use Disorders: No Previous Attempt: Yes (leading to admission) Family History of Suicide: No Previous Psychiatric Hospitalization: Yes Hopelessness: Yes Protective Factors Assessment 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 Chief Complaint "I'm good". Review of Systems Sleep Information Total Hours of Sleep: 8.5 Meal Information Percent Meal Consumed - Breakfast: 75 Percent Meal Consumed - Lunch: 80 Percent Meal Consumed - Dinner: 50 Subjective Subjective Patient was seen & assessed and interval progress reviewed with treatment team nursing and social work. Slept well last night. Mood is improving. Denies SI. No side effects from medication. Physical Exam Psychiatric Orientation: alert and oriented x 3 Apperance: appropriately dressed and appropriately groomed Eye Contact: good eye contact Motor Behavior: no abnormal motor movements Speech: normal rate/rhythm/volume of speech Affect: + constricted affect Mood: + depressed mood and + anxious mood Thought Process: goal directed thought process Thought Content: reality based without delusions Suicidal Thoughts: denies suicidal thoughts (none but s/p overdose), denies suicidal plan and denies suicidal intent Homicidal Thoughts: denies homicidal thoughts Hallucinations: no auditory hallucinations and no visual hallucinations Cognition: recent memory grossly intact, remote memory grossly intact, attention grossly intact and language grossly intact Estimated Intelligence: consistent with education level Insight: + fair insight Judgment: + fair judgement Vital Signs (Past 24 Hours) Last Vital Signs Temp 36.5 C 08/27/22 06:35 Pulse 65 08/27/22 06:36 Resp 16 08/27/22 06:35 BP 120/71 08/27/22 06:36 Pulse Ox 98 08/26/22 06:00 O2 Del Method Room Air 08/26/22 06:00 Results & Data ([facility]) Laboratory Results Laboratory Results - last 24 hr 08/24/22 08/26/22 22:42 06:56 Estimat Average Glucose 105 Hemoglobin A1c 5.3 U Marijuana THC Carboxy 189 H Drug Screen Comment SEE NOTE Current Inpatient Medications Current Inpatient Medications: Current Inpatient Medications Acetaminophen (Acetaminophen 325 Mg Tab) 650 mg PO Q4H PRN PRN Reason: Headache or Minor Fever Stop: 09/24/22 03:15 Al Hydrox/Mg Hydrox/Simethicone (Aluminum/Magnesium Susp 30 Ml Udc) 30 ml PO Q4H PRN PRN Reason: GI Upset Stop: 09/24/22 03:15 Bismuth Subsalicylate (Bismuth Subsalicylate Liqd 236 Ml) 15 ml PO PRN PRN PRN Reason: Loose Stool Stop: 09/24/22 03:15 Buspirone HCl (Buspirone 5 Mg Tab) 20 mg PO BID EVARISTO Stop: 09/25/22 10:59 Last Admin: 08/27/22 08:45 Dose: 20 mg Fluoxetine HCl (Fluoxetine Hcl 20 Mg Cap) 40 mg PO QAM EVARISTO Stop: 09/25/22 08:59 Last Admin: 08/27/22 08:45 Dose: 40 mg Lurasidone HCl (Lurasidone Hcl 40 Mg Tab) 40 mg PO DAILYBD EVARISTO Stop: 09/24/22 17:14 Last Admin: 08/26/22 17:33 Dose: 40 mg Magnesium Hydroxide (Magnesium Hydroxide Susp 30 Ml Udc) 30 ml PO DAILY PRN PRN Reason: Constipation Stop: 09/24/22 03:15 Sodium Chloride (Sodium Chloride 0.65% Na Soln 45 Ml ([place])) 1 - 2 sprays NA PRN PRN PRN Reason: Nasal Dryness/Congestion Stop: 09/24/22 03:15 Topiramate (Topiramate 100 Mg Tab) 100 mg PO BID EVARISTO Stop: 09/24/22 20:59 Last Admin: 08/27/22 08:45 Dose: 100 mg Mental Health & Subst Abuse Tx Psychiatrist Name of Psychiatrist: Cassi Parker Psychiatrist's Psychiatric Appointment Comment: [address] [facility] [address] Therapist Name of Therapist: [facility] Therapist's Therapy Appointment Comment: [facility] [employer] [facility] Name of [facility] [employer] [facility]: none Post Discharge Appointments Primary Care Physician [facility] Provider Appointment Comment: Please follow up with PCP if needed. Contact Information Discharge Discharge Address: [address], [facility] [address]
[2022-08-27] MEDS: LURASIDONE HCL 40 MG TAB PO SCH (17:31)
--- NOTE | 2022-08-28 08:33 | Discharge Summary ---
Date of Service August 28, 2022 History of Present Illness Kathi was brought to the hospital after impulsively overdosing on hydroxyzine, 20 tabs of 25mg strength tablets, in the context of an argument with her roommate. She had texted her boyfriend a suicide note via text and he encouraged her to call EMS which she then did. She feels like she did not want to but also wasn't "really sure what would happen" and felt like she wanted to sleep and thought "if I don't wake up then that's what happens but if I did wake up I'd deal with the consequences later". She endorses increased depressive and anxiety symptoms recently related to loneliness/social isolation, financial stress and conflict with roommates. Depressive symptoms including low motivation, hopelessness, decreased appetite, difficulty sleeping (sleep onset insomnia and multiple awakenings). Anxiety symptoms of not wanting to go anywhere, isolation, heart racing, denies any panic attacks. She's been experiencing intermittent SI but "they were in the back of mind, not like I wanted to kill myself" but feels it acutely worsened after her roommate was making very derogatory statements about her. "The words he was saying made me feel like I was worthless and shouldn't be here and that no one likes me". She is currently prescribed psychiatric medications: buspar 20mg BID, fluoxetine 20mg daily (about 2 or 3 months, seems to help, no side effects), Latuda 60mg with dinner (has been on this for the past month with good effect), Topamax 100mg BID (for headaches and mood stabilization, no side effects). Psychiatric ROS notable for no current nor history of symptoms of robyn but history of hypomania, psychosis, OCD, self-harm nor eating disorder. History of trauma no current symptoms of PTSD. Physical Exam Vital Signs (Past 24 Hours) Last Vital Signs Temp 36.5 C 08/28/22 06:38 Pulse 66 08/28/22 06:39 Resp 16 08/28/22 06:38 BP 103/68 08/28/22 06:39 Pulse Ox 98 08/26/22 06:00 O2 Del Method Room Air 08/26/22 06:00 See admission H&P and DOD summary. Principal Diagnosis Bipolar Affective Disorder type II, major depressive episode Psychiatric Data See daily stay summary. In short, patient was engaged with the social/therapeutic milieu of the unit, safety was maintained and the patient was cooperative with care. Medication changes included increase of fluoxetine to 40mg daily and discontinuation of hydroxyzine and they tolerated this well. Fasting glucose, HbA1c, and fasting lipid profile were preformed and notably for all normal results with exception of slightly elevated LDL and low HDL. Recommend repeat fasting glucose, HbA1c and fasting lipid profile annually if she remains on Latuda. If symptoms arise recommend checking BP, EKG, prolactin level as clinically indicated or relevant. A support session was held and safety plan was completed prior to discharge. She actively and insightfully participated in safety planning and in discussions about ways to seek support and recognizing warning signs and utilizing coping skills. Reviewed mobile apps that could be used for additional ways to have their safety plan and contacts easily available should thoughts of SI re-emerge in the future. Reviewed importance of seeking emergency care should SI intensi fy, worsen or should they feel unsafe in the future which they agree to do. On the day of discharge she stated her mood was "happy, safe and optimistic" and remained future-oriented including seeing her partner, getting back to work and engaging in aftercare appointments for therapy and eventually psychiatry. Day of Discharge Assessment Today the patient voices readiness for discharge. They note improvement in mood and anxiety. They deny thoughts of harm to self or others. Thoughts are organized and they are clinically improved from admission. There is no evidence of psychosis. They improved in the hospital with support and medication adjustments. They agree to take medications as prescribed and keep follow-up appointments. At the time of the discharge they are deemed to be stable and appropriate for outpatient level of care. They are not deemed to be at imminent risk of harm to self or others. They are aware of emergency and crisis services. Knows to call 911 or go to nearest emergency care center if in a crisis which cannot be handled as an outpatient. Transition of Care Transition Of Care Record: was reviewed with the patient Advance Directives Advance Directives Information Provided: Yes Advance Directives: No Mental Health Advance Directive: No Advance Directives on File: No Living Will: No Power of Field Underwriter: No Advance Directives Reason:: Declines as Mental Health Visit. Suicide Risk Level Suicide Risk Level Comments: Acute risk is low given improvement in mood and denial of SI, lack of access to lethal means, improvement in sleep and hopefulness. Chronic risk is moderate given multiple non-modifiable risk factors: psychiatric co-morbid diagnoses, periods of impulsivity, prior attempt, prior psychiatric hospitalizations, mood disorder, childhood trauma but also with protective factors including: employed, good social support from her partner, sense of responsibility to family and social supports, outpatient care in place, positive coping skills, positive problem solving, capacity to establish therapeutic alliance, willingness to engage with treatment and capacity for self-observation. Counseled on ways to reduce acute and chronic risk including engaging with outpatient providers, using safety plan if needed, utilizing supports, taking medication, and using coping skills. Modifiable risk factors of SI and depression were addressed during hospitalization through development of new coping skills, family meeting, safety planning, and medication adjustments. 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) Employed: Yes Stable Relationships: Yes Good Rapport with Provider: Yes Discharge Data Lab Results 08/24/22 08/24/22 08/24/22 22:02 22:02 22:02 WBC 10.41 RBC 4.82 Hgb 14.7 Hct 43.2 MCV 89.6 MCH 30.5 MCHC 34.0 RDW Std Deviation 41.3 RDW Coeff of Enrique 12.6 Plt Count 295 MPV 11.5 Immature Gran % (Auto) 0.3 Neut % (Auto) 59.0 Lymph % (Auto) 33.1 [place] % (Auto) 6.3 Eos % (Auto) 0.9 Baso % (Auto) 0.4 Neut # (Auto) 6.14 Lymph # (Auto) 3.45 H [place] # (Auto) 0.66 H Eos # (Auto) 0.09 Baso # (Auto) 0.04 Immature Gran # (Auto) 0.03 Sodium 139 Potassium 3.4 L Chloride 106 Carbon Dioxide 26 Anion Gap 7 BUN 14 Creatinine 0.93 Est Cr Clr Drug Dosing 105.9 Est GFR ( Amer) 100.4 Est GFR (Non-Af Amer) 86.6 BUN/Creatinine Ratio 15.1 Glucose 99 Estimat Average Glucose Hemoglobin A1c Calcium 9.1 Total Bilirubin 0.2 AST 17 ALT 10 Alkaline Phosphatase 101 Total Protein 7.6 Albumin 4.3 Globulin 3.3 Albumin/Globulin Ratio 1.3 Triglycerides Cholesterol LDL Cholesterol, Calc VLDL Cholesterol, Calc HDL Cholesterol Cholesterol/HDL Ratio TSH 2.328 Urine Color Urine Appearance Urine pH Ur Specific [place] Urine Protein Urine Glucose (UA) Urine Ketones Urine Blood Urine Nitrite Urine Bilirubin Urine Urobilinogen Ur Leukocyte Esterase Urine Test Salicylates Urine Opiates Screen Ur Methadone, Qual Acetaminophen Urine Barbiturates Ur Phencyclidine (PCP) U Amphetamin/Meth Scrn MDMA (Ecstasy) Screen U Benzodiazepines Scrn Ur Cocaine Metabolite U Marijuana (THC) Screen U Marijuana THC Carboxy Drug Screen Comment Ethyl Alcohol mg/dL SARS-CoV-2, RNA, NAAT 08/24/22 08/24/22 08/24/22 22:02 22:42 22:42 WBC RBC Hgb Hct MCV MCH MCHC RDW Std Deviation RDW Coeff of Enrique Plt Count MPV Immature Gran % (Auto) Neut % (Auto) Lymph % (Auto) [place] % (Auto) Eos % (Auto) Baso % (Auto) Neut # (Auto) Lymph # (Auto) [place] # (Auto) Eos # (Auto) Baso # (Auto) Immature Gran # (Auto) Sodium Potassium Chloride Carbon Dioxide Anion Gap BUN Creatinine Est Cr Clr Drug Dosing Est GFR ( Amer) Est GFR (Non-Af Amer) BUN/Creatinine Ratio Glucose Estimat Average Glucose Hemoglobin A1c Calcium Total Bilirubin AST ALT Alkaline Phosphatase Total Protein Albumin Globulin Albumin/Globulin Ratio Triglycerides Cholesterol LDL Cholesterol, Calc VLDL Cholesterol, Calc HDL Cholesterol Cholesterol/HDL Ratio TSH Urine Color Urine Appearance Urine pH Ur Specific [place] Urine Protein Urine Glucose (UA) Urine Ketones Urine Blood Urine Nitrite Urine Bilirubin Urine Urobilinogen Ur Leukocyte Esterase Urine Test Salicylates < 3.0 L Urine Opiates Screen Neg Ur Methadone, Qual Neg Acetaminophen < 3 L Urine Barbiturates Neg Ur Phencyclidine (PCP) Neg U Amphetamin/Meth Scrn Neg MDMA (Ecstasy) Screen Neg U Benzodiazepines Scrn Neg Ur Cocaine Metabolite Neg U Marijuana (THC) Screen Pos H U Marijuana THC Carboxy Drug Screen Comment Ethyl Alcohol mg/dL SARS-CoV-2, RNA, NAAT NEGATIVE 08/24/22 08/24/22 08/24/22 22:42 22:42 22:42 WBC RBC Hgb Hct MCV MCH MCHC RDW Std Deviation RDW Coeff of Enrique Plt Count MPV Immature Gran % (Auto) Neut % (Auto) Lymph % (Auto) [place] % (Auto) Eos % (Auto) Baso % (Auto) Neut # (Auto) Lymph # (Auto) [place] # (Auto) Eos # (Auto) Baso # (Auto) Immature Gran # (Auto) Sodium Potassium Chloride Carbon Dioxide Anion Gap BUN Creatinine Est Cr Clr Drug Dosing Est GFR ( Amer) Est GFR (Non-Af Amer) BUN/Creatinine Ratio Glucose Estimat Average Glucose Hemoglobin A1c Calcium Total Bilirubin AST ALT Alkaline Phosphatase Total Protein Albumin Globulin Albumin/Globulin Ratio Triglycerides Cholesterol LDL Cholesterol, Calc VLDL Cholesterol, Calc HDL Cholesterol Cholesterol/HDL Ratio TSH Urine Color Yellow Urine Appearance Clear Urine pH 6.0 Ur Specific [place] 1.021 Urine Protein Negative Urine Glucose (UA) Negative Urine Ketones Negative Urine Blood Negative Urine Nitrite Negative Urine Bilirubin Negative Urine Urobilinogen Negative Ur Leukocyte Esterase Negative Urine Test Negative Salicylates Urine Opiates Screen Ur Methadone, Qual Acetaminophen Urine Barbiturates Ur Phencyclidine (PCP) U Amphetamin/Meth Scrn MDMA (Ecstasy) Screen U Benzodiazepines Scrn Ur Cocaine Metabolite U Marijuana (THC) Screen U Marijuana THC Carboxy 189 H Drug Screen Comment SEE NOTE Ethyl Alcohol mg/dL SARS-CoV-2, RNA, NAAT 08/24/22 08/26/22 08/26/22 22:48 06:56 06:56 WBC RBC Hgb Hct MCV MCH MCHC RDW Std Deviation RDW Coeff of Enrique Plt Count MPV Immature Gran % (Auto) Neut % (Auto) Lymph % (Auto) [place] % (Auto) Eos % (Auto) Baso % (Auto) Neut # (Auto) Lymph # (Auto) [place] # (Auto) Eos # (Auto) Baso # (Auto) Immature Gran # (Auto) Sodium Potassium Chloride Carbon Dioxide Anion Gap BUN Creatinine Est Cr Clr Drug Dosing Est GFR ( Amer) Est GFR (Non-Af Amer) BUN/Creatinine Ratio Glucose Estimat Average Glucose 105 Hemoglobin A1c 5.3 Calcium Total Bilirubin AST ALT Alkaline Phosphatase Total Protein Albumin Globulin Albumin/Globulin Ratio Triglycerides 124 Cholesterol 119 LDL Cholesterol, Calc 65 VLDL Cholesterol, Calc 25 HDL Cholesterol 29 Cholesterol/HDL Ratio 4.1 TSH Urine Color Urine Appearance Urine pH Ur Specific [place] Urine Protein Urine Glucose (UA) Urine Ketones Urine Blood Urine Nitrite Urine Bilirubin Urine Urobilinogen Ur Leukocyte Esterase Urine Test Salicylates Urine Opiates Screen Ur Methadone, Qual Acetaminophen Urine Barbiturates Ur Phencyclidine (PCP) U Amphetamin/Meth Scrn MDMA (Ecstasy) Screen U Benzodiazepines Scrn Ur Cocaine Metabolite U Marijuana (THC) Screen U Marijuana THC Carboxy Drug Screen Comment Ethyl Alcohol mg/dL < 10.0 SARS-CoV-2, RNA, NAAT Hospital Course (1) Bipolar 2 disorder, major depressive episode: (2) GIL (generalized anxiety disorder): (3) Intentional overdose: Plan 08/27/2022: Continue current medications and tx plan. 08/26/2022: * Increased fluoxetine 40mg qd * Latuda 40mg BD * Topamax 100mg BID * Restart prior to admission Buspar 20mg BID 08/25/2022: The patient was admitted to the [facility] ([facility] unit) on q15 min checks (behavioral with suicide precautions) for safety. The patient will participate in group, recreational, and milieu therapies and will be offered additional individual and family sessions as clinically appropriate. -fasting glucose, HbA1c, fasting lipid panel tomorrow AM -Restart Latuda 40mg daily (reduce to 40mg as hospital formulary doesn't have 60mg) -hold Buspar and Vistaril prn given overdose -Increase fluoxetine to 40mg daily starting tomorrow -Continue prior to admission Topamax 100mg BID for migraines -Consideration for augmentation with mirtazapine if sleep issues and low appetite persist Mental Health & Subst Abuse Tx Psychiatrist Name of Psychiatrist: Cassi Parker Psychiatrist's Time of Appointment with Psychiatrist: Please contact to discuss payment options. Psychiatric Appointment Comment: [address] [facility] [address] Therapist Name of Therapist: Sloan KUMAR Therapist's Therapy Appointment Comment: Virtual Associate Account Director Name of Associate Account Director: none Post Discharge Appointments Primary Care Physician Name Of Family Doctor/PCP: [facility] - Rangel Meek Primary Care Date of Future Appointment with PCP: 09/03/22 Time of Appointment with PCP: 9:20 AM Provider App[facility]ment [facility] [phone] [facility] [address] Contact Information Discharge Discharge [place]: [address], [facility] [place] [address] Discharge Plan Discharge Items Patient Disposition: Home - Self-Care Reason For Visit: SUICIDE ATTEMPT Discharge Diagnosis: Bipolar Affective Disorder type II, current depressive episode Activity: Resume your previous activity Non-emergency contact: Primary Care Provider and Therapist Call non-emergency contact if: you have any medication questions and your symptoms worsen Follow-up/Referrals: Rangel Meek, [Primary Care Provider] - Diet: Regular Addtl Attending Provider Instructions: Optional mobile apps we discussed: -Suicide safety plan -Virtual Hope Box -Panic toll mechanic SPECIAL CARE INSTRUCTIONS: 1. Follow through with your scheduled aftercare appointments. If unable to keep an appointment, please call to reschedule. 2. Take your medication only as prescribed. Medication should not be changed or stopped without the approval of your doctor. In the event of worsening symptoms or concerns about side effects, contact your doctor immediately. 3. Utilize new healthy coping skills, anger management skills, and stress management skills learned during your hospitalization. Journal feelings and process them with a support person. Identify stressors or situations that may result in relapse, deterioration or inappropriate behaviors and develop a plan to deal with those issues. 4. If your coping skills are ineffective and you are in crisis, contact your outpatient providers for direction. If unable to reach your providers, please call the [facility] CRISIS LINE AT , go to the [facility] walk-in center at [address] [place] [address], [address], [place], or go to the closest Emergency Room. 5. Avoid alcohol and un-prescribed drugs. 6. You have been provided with the Mental Health Advance Directives Pamphlet for your review. 7. Your condition is stable for discharge to outpatient level of care, but recovery is an ongoing process. Ifthoughts to harm yourself or others return, follow the safety plan developed during your stay. Planning for a safe return home includes securing weapons. Our treatment team recommends weaponsbe removed from the home until your outpatient provider reassesses your progress. In rare cases where the items themselvescannot be removed, guns and ammunitionshould be secured separatelyand keys stored by a reliable personoutside of the home. If you were admitted on an involuntary commitment, the police or other legal authorities may be involved in this process. AFTERCARE APPOINTMENTS: * Please call your insurance company prior to your scheduled appointment to confirm your aftercare providers are covered. Take your insurance information to your appointments. WHO TO CALL AND WHEN: Medical Emergencies: For questions or emergencies related to your hospital stay, please contact the Inpatient Behavioral Health Unit at [phone]. A medical equipment repairer is on-call 05/11 for the Behavioral Health Unit for emergencies National Crisis Hotline: 988 At any time you feel your situation is an emergency, you may also call 911 immediately. Pending Studies at Discharge: No Stand-Alone Forms: [facility] Medications and DC Order Prescriptions: New fluoxetine 40 mg capsule 40 mg PO DAILY 30 Days Qty: 30 0RF Continued (DME) BD Integra Syringe 3 mL 25 gauge x 1" syringe See Rx Instructions .ROUTE .MEDSUPPLY Qty: 4 3RF Rx Instructions: As directed with b12 Mirena 20 mcg/24 hours (6 yrs) 52 mg intrauterine device 1 device intrauterine buspirone 10 mg tablet 20 mg PO BID 30 Days Qty: 120 0RF topiramate 100 mg tablet 100 mg PO BID 30 Days Qty: 60 0RF Changed lurasidone 60 mg tablet 60 mg PO PM 30 Days Qty: 30 0RF Rx Instructions: must administer with food (at least 350 calories) Discontinued fluoxetine 20 mg tablet 40 mg PO DAILY Discharge Orders: Discharge Order (Routine); Ordered 08/28/22 Ordered By: Jennifer Mann Admission Data Admit Date/Time: 08/25/22 03:16 Attending Provider: Jennifer Mann Admit Provider: Jennifer Mann Primary Care Provider: Rangel Meek Other Interventions: Discharge Summary Assessment (RN) Last Done: 08/28/22 10:50 PSY Interdisciplinary Discharge Planning Last Done: 08/28/22 10:53 Coding Level of Care Code 70019 D/C day mgmt > 30 min Diagnoses Bipolar 2 disorder, major depressive episode F31.81 GIL (generalized anxiety disorder) F41.1 Intentional overdose T50.902A Time Spent (min) 40
[2022-08-28] MEDS: busPIRone 5 MG TAB PO SCH (08:35)
[2022-08-28] MEDS: FLUoxetine HCL 20 MG CAP PO SCH (08:36)
[2022-08-28] MEDS: TOPIRAMATE 100 MG TAB PO SCH (08:36)
[2022-08-28] MEDS ORDERED: DESTROY THIS MEDICATION ONE (09:15)
== END 2022-08-28 11:20 | disposition home or self-care (01) | DRG 885 ==
LOC: ED 21:55 → 3S 08-25 03:16